=== PATIENT | female | born 1960 | race African-American/Black ===

== ENCOUNTER → 2017-07-28 | Outpatient (CLI) | payer BC | END | disposition home or self-care (01) | LOC: CT 08:53 | PROVIDERS: ATTEND Family Medicine | DX: Z12.2 Encounter for screening for malignant neoplasm of respiratory organs (principal); Z72.0 Tobacco use | CPT/HCPCS: 71250-TC ==

== ENCOUNTER 2018-07-09 15:32 | Outpatient (CLI) | payer BC ==
[2018-07-10 12:16] LABS: *MUMPS AB (IGG) 86.9 AU/mL (Immune >10.9); *RUBEOLA AB (IGG) >300.0 AU/mL (Immune >29.9)
== END 2018-07-09 23:59 | disposition home or self-care (01) ==
LOC: LAB 15:32
PROVIDERS: ATTEND Family Medicine
DX: Z11.59 Encounter for screening for other viral diseases (principal); N39.0 Urinary tract infection, site not specified
CPT/HCPCS: 36415; 86735; 86762; 86765; 87086-TC